=== PATIENT | female | born 1935 | race Two or more races ===

== ENCOUNTER → 2016-06-23 | Emergency (ER) | payer OTHER, BC ==
[2016-06-23 23:34] VITALS: BP 148/91; PULSE 125; TEMP 98.2; BMI 19.7
--- NOTE | 2016-06-24 01:33 | PDOC ---
History of Present Illness - General Chief Complaint: Injury Stated Complaint: FALL/INJURY Time Seen by Provider: 06/24/16 00:26 - History of Present Illness Initial Comments: 06/24/16 01:31 CHIEF COMPLAINT: R hip discomfort s/p fall HISTORY OF PRESENT ILLNESS: 81 yo F with hx of HTN presents to ED s/p fall. Patient states she was taking out the trash and when she was going back inside her house the handle of the door fell off and she fell backwards. She denies LOC or trauma to her head. She states that she has "a little soreness to her back" and R posterior hip. She states "it's not really painful, it just feels a sore when I push down on it." She denies any dizziness, nausea, vomiting, change in vision, difficulty walking. Family member at bedside states she has had no change in mental status or speech. She denies taking any anticoagulants or blood thinners. No recent travel or sick contacts. PAST MEDICAL HISTORY: HTN FAMILY HISTORY: Denies SOCIAL HISTORY: Denies tobacco, alcohol, illicit drug use. SURGICAL HISTORY: Denies ALLERGIES: pear, shrimp, walnut. REVIEW OF SYSTEMS General/Constitutional: Denies fever or chills. Denies weakness, weight change. HEENT: Denies change in vision. Denies ear pain or discharge. Denies sore throat. Cardiovascular: Denies chest pain or shortness of breath. Respiratory: Denies cough, wheezing, or hemoptysis. Gastrointestinal: Denies nausea, vomiting, diarrhea or constipation. Denies rectal bleeding. Genitourinary: Denies dysuria, frequency, or change in urination. Musculoskeletal: Mild discomfort to back of right hip/back. Skin and breasts: Denies rash or easy bruising. Neurologic: Denies headache, vertigo, loss of consciousness, or loss of sensation. PHYSICAL EXAM General Appearance: Well-appearing, appropriately dressed. No apparent distress , no intoxication. HEENT: EOMI, PERRLA, normal ENT inspection, normal voice, TMs normal, pharynx normal. No conjunctival pallor. No photophobia, scleral icterus. Neck: No tenderness to cervical spine. Supple. Trachea midline. No tenderness , rigidity, carotid bruit, stridor, lymphadenopathy, or thyromegaly. Respiratory/Chest: Lungs CTAB. Vascular Pulses: Dorsalis-Pedis (R): 2+, Dorsalis-Pedis (L): 2+ Gastrointestinal/Abdominal: Normal bowel sounds. Abdomen soft, non-distended. No tenderness or rebound tenderness. No organomegaly, pulsatile mass, guarding , hernia, hepatomegaly, splenomegaly. Musculoskeletal/Extremities: Minimal tenderness to R posterior hip on deep palpation, no swelling, erythema, or hematoma. Pelvis Stable. No tenderness to thoracic or lumbar spine. Normal inspection. FROM of all extremities, normal capillary refill. No CVA tenderness. No tenderness to extremities, pedal edema , swelling, erythema or deformity. Integumentary: Appropriate color, dry, warm. No cyanosis, erythema, jaundice or rash Neurologic: saloon keeper II-XII intact. Fully oriented, alert. Appropriate mood/affect. Motor strength 5/5. No appreciable EOM palsy, facial droop or sensory deficit. Neuro exam Past History - Past Medical History Allergies/Adverse Reactions: Allergies Allergy/AdvReac Type Severity Reaction Status Date / Time pear Allergy Verified 06/23/16 23:32 shrimp Allergy Verified 06/23/16 23:32 walnut Allergy Verified 06/23/16 23:32 Home Medications: Ambulatory Orders Metoprolol Tartrate 50 mg PO DAILY 06/23/16 Naproxen [Naprosyn] 250 mg PO BID PRN #100 oral.susp 06/24/16 Cardiac Disorders: Yes (MVP) HTN: Yes - Psycho/Social/Smoking Cessation Hx Suicidal Ideation: No Smoking History: Never smoked Hx Alcohol Use: No Drug/Substance Use Hx: No *Physical Exam - Vital Signs Last Vital Signs Temp Pulse Resp BP Pulse Ox 98.2 F 125 H 18 148/91 99 06/23/16 23:32 06/23/16 23:32 06/23/16 23:32 06/23/16 23:32 06/23/16 23:32 Medical Decision Making - Medical Decision Making 06/24/16 06:34 81 yo F with hx of HTN presents to ED s/p fall. Patient is A&Ox3, very animated while describing incident and mostly concerned about door handle falling off vs her own hip discomfort. Will discharge to home with NSAIDS for possible sequelae of MSK pain. Advised patient to take medication as prescribed and f/u with ortho if symptoms persist. Advised patient of signs and symptoms for return to ER; patient verbalized understanding and agrees to plan. *DC/Admit/Observation/Transfer Diagnosis at time of Disposition: Fall Qualifiers: Encounter type: initial encounter Qualified Code(s): W19.XXXA - Unspecified fall, initial encounter - Discharge Dispostion Admit: No - Prescriptions Prescriptions: Naproxen [Naprosyn] 250 mg PO BID PRN #100 oral.susp PRN Reason: Pain - Referrals Referrals: Bj Vazquez MD [Staff Physician] - - Patient Instructions Printed Discharge Instructions: How to Prevent Falls Additional Instructions: Please take medication as prescribed. If your symptoms persist past 2-3 days, please follow up with orthopedics. If you experience any change in mental status, slurred speech, change in vision, chest pain, shortness of breath, weakness to one side, or any new or worsening symptoms, please return to the ER.
== END | disposition home or self-care (01) ==
LOC: JER 23:28
DX: M25.551 Pain in right hip (principal); W18.39XA Other fall on same level, initial encounter; Y93.E9 Activity, other interior property and clothing maintenance; Y92.018 Other place in single-family (private) house as the place of occurrence of the external cause; I10 Essential (primary) hypertension
CPT/HCPCS: 99281-25

== ENCOUNTER 2018-12-09 21:30 | Emergency (ER) | payer OTHER, BC ==
[2018-12-09 21:54] VITALS: BP 155/71; PULSE 94; TEMP 98.6; BMI 19.5
--- NOTE | 2018-12-09 22:33 | PDOC ---
History of Present Illness - General Chief Complaint: Edema Stated Complaint: L ANKLE RED Time Seen by Provider: 12/09/18 22:32 - History of Present Illness Initial Comments: 12/09/18 23:41 83yo F hx HTN presents from home c/o R ankle redness and swelling s/p possible insect bite this PM, swelling resolved, redness improved and only minimal erythema remains, nonitchy, nonpainful, no warmth, no purulence. Pt was outside with her family and didn't feel anything sting or bite, but was walking through grass. Pt noticed a gradual swelling and erythema of the lateral R ankle. Pt did not take benadryl or any medications. Denies hx of similar sx, allergies. Denies F/C, N/V, throat swelling or itching, tongue swelling, difficulty breathing, dizziness, abdominal pain, numbness/tingling, weakness, trauma, fall. Past History - Past Medical History Allergies/Adverse Reactions: Allergies Allergy/AdvReac Type Severity Reaction Status Date / Time pear Allergy Verified 12/09/18 21:49 shrimp Allergy Verified 12/09/18 21:49 walnut Allergy Verified 12/09/18 21:49 Home Medications: Ambulatory Orders Metoprolol Tartrate 50 mg PO DAILY 06/23/16 Naproxen [Naprosyn] 250 mg PO BID PRN #100 oral.susp 06/24/16 Cardiac Disorders: Yes (MVP) HTN: Yes - Suicide/Smoking/Psychosocial Hx Smoking History: Never smoked Hx Alcohol Use: No Drug/Substance Use Hx: No Review of Systems - Review of Systems Comments:: 12/09/18 23:41 Constitutional: Negative for chills, fever, fatigue. HENT: Negative for sore throat, rhinorrhea, congestion. Eyes: Negative for visual disturbance. Respiratory: Negative for shortness of breath, cough, and wheezing. Cardiovascular: Negative for chest pain, palpitations, and leg swelling. Gastrointestinal: Negative for abdominal pain, blood in stool, constipation, diarrhea, nausea, and vomiting. Genitourinary: Negative for dysuria, flank pain, and hematuria. Musculoskeletal: Negative for myalgias, back pain, and neck pain. Skin: Positive for slight erythema and swelling of lateral R ankle. Neurological: Negative for light-headedness, dizziness, syncope, weakness, numbness and headaches. Psychiatric/Behavioral: Negative for behavioral problems and confusion. *Physical Exam - Vital Signs Last Vital Signs Temp Pulse Resp BP Pulse Ox 98.6 F 94 H 18 155/71 98 12/09/18 21:51 12/09/18 21:51 12/09/18 21:51 12/09/18 21:51 12/09/18 21:51 - Physical Exam Comments: 12/09/18 23:35 Gen: Alert, NAD, comfortable-appearing. HEENT: PERRL, EOMI, MMM, NCAT. No conjunctival pallor. Sclera are non-icteric. Oropharynx is clear. CV: Regular rate and rhythm. No murmurs, rubs, or gallops. PULM: No resp distress. CTAB, no wheezes, rales, or rhonchi. ABD: soft, NT/ND, no rebound tenderness or guarding, no CVA tenderness. MSK: No bony deformities. 2+ pulses in all extremities. NEURO: AAOx3. PERRL. No gross CN deficits. Strength and sensation grossly intact throughout. EXTREMITIES: No cyanosis. No clubbing. No edema. No calf tenderness. RLE: full ROM of ankle, 5/5 strength, sensation to light touch intact, <2 sec cap refill. PSYCH: Normal mood and thought pattern. SKIN: Warm and dry. Normal capillary refill. No jaundice. Very light erythematous 2"x2" flat area on lateral R ankle, no edema, atraumatic , no warmth, no TTP. Medical Decision Making - Medical Decision Making 12/09/18 23:41 83yo F hx HTN presents from home c/o R ankle redness and swelling s/p possible insect bite this PM, swelling resolved, redness improved and only minimal erythema remains, nonitchy, nonpainful. Hemodynamically stable, afebrile, neurovascularly intact, full ROM of ankle, no s/s concerning for anaphylaxis. Most likely contact vs allergic dermatitis. No s/s concerning for cellulitis. Pt states it's better and she does not want Benadryl or anything. Pt has benadryl at home in case she wants to take it later. Pt would like to go home now. -dc home w/PCP f/u Return precautions given. Pt understands all dc instructions and all questions were answered. *DC/Admit/Observation/Transfer Diagnosis at time of Disposition: Contact dermatitis - Discharge Dispostion Disposition: HOME Condition at time of disposition: Improved Decision to Admit order: No - Referrals - Patient Instructions Printed Discharge Instructions: DI for Contact Dermatitis Additional Instructions: You have been seen in the Emergency Department for redness and swelling of your right ankle. The swelling and redness have subsided since your arrival to the ED. Your exam shows no signs of an emergent condition such as an infection. The cause of your symptoms are unknown, but they were probably due to an insect bite or contact of some sort. The redness should continue to subside. Follow-up with your primary care doctor within 1 week. Return to the ED immediately if you the swelling or redness worsens or spreads, or if you experience chest pain, difficulty breathing, dizziness, fever, vomiting, numbness or tingling, or any other new or worsening symptom. - Post Discharge Activity
== END 2018-12-10 00:05 | disposition home or self-care (01) ==
LOC: JER 21:30
DX: L25.9 Unspecified contact dermatitis, unspecified cause (principal); I10 Essential (primary) hypertension
CPT/HCPCS: 99281-25

== ENCOUNTER 2021-08-31 07:04 | Inpatient (IN) | payer OTHER, MEDICARE, BC ==
[2021-08-31] MEDS ORDERED: ceFAZolin SODIUM 1 GM VIAL ONE ×3 (07:28→18:06)
[2021-08-31] MEDS ORDERED: VANCOMYCIN 1,000 MG VIAL (RESTRICTED TO ID ONLY) ONE (07:28)
[2021-08-31 08:09] VITALS: BMI 21.0
[2021-08-31] MEDS ORDERED: CELECOXIB 200 MG CAPSULE PO ONE ×2 (08:10→10:30)
[2021-08-31] MEDS ORDERED: MIDAZOLAM HCL 2 MG/2 ML SINGLE DOSE VIAL ONE ×2 (08:18)
[2021-08-31] MEDS ORDERED: SUCCINYLCHOLINE CHLORIDE 200 MG/10 ML SYRINGE ONE (08:20)
[2021-08-31] MEDS ORDERED: DEXAMETHASONE SOD PHOSPHATE 4 MG/1 ML VIAL ONE (08:20)
[2021-08-31] MEDS ORDERED: PROPOFOL 20 ML ONE ×2 (08:20)
[2021-08-31] MEDS ORDERED: ONDANSETRON 4 MG/2 ML VIAL ONE (08:20)
[2021-08-31] MEDS ORDERED: DEXAMETHASONE SOD PHOSPHATE 10 MG/1 ML VIAL ONE (08:23)
[2021-08-31] MEDS ORDERED: BUPIVACAINE HCL/PF 0.5% (5MG/ML) 10 ML VIAL ONE (08:24)
[2021-08-31] MEDS ORDERED: MAG HYDROX/AL HYDROX/SIMETH 30 ML UNIT-DOSE CUP PO PRN (08:52)
[2021-08-31] MEDS ORDERED: LACTATED RINGERS SOLUTION 1,000 ML IV SCH (09:00)
[2021-08-31] MEDS ORDERED: TRANEXAMIC ACID 1000 MG/10 ML VIAL IVPUSH ONE (10:30)
[2021-08-31] MEDS ORDERED: CEFAZOLIN 2 GM in DEXTROSE 5%-WATER - 50 ML IVPB ONE (10:30)
[2021-08-31] MEDS ORDERED: ACETAMINOPHEN 1000 MG/100 ML BAG IVPB ONE (11:00)
[2021-08-31] MEDS ORDERED: ONDANSETRON 4 MG/2 ML VIAL IVPUSH PRN (11:00)
[2021-08-31] MEDS ORDERED: oxyCODONE HCL 5 MG TABLET PO PRN (11:00)
[2021-08-31] MEDS: KETOROLAC TROMETHAMINE 30 MG/1 ML VIAL IVPUSH SCH ×2 (11:20→18:01)
[2021-08-31] MEDS: PANTOPRAZOLE 40 MG TABLET PO SCH (14:24)
[2021-08-31] MEDS: MULTIVITAMINS (DAILY MVI) TABLET (FP) PO SCH (14:24)
[2021-08-31] MEDS: oxyCODONE HCL 5 MG TABLET PO PRN (15:51)
[2021-08-31] MEDS: CARBIDOPA/LEVODOPA 25/100 TABLET (FP) PO SCH ×2 (15:52→21:32)
[2021-08-31] MEDS ORDERED: DEXTROSE 5%-WATER - 50 ML IVPB ONE (18:06)
[2021-08-31] MEDS: CEFAZOLIN 2 GM in DEXTROSE 5%-WATER - 50 ML IVPB SCH (18:10)
[2021-08-31] MEDS: ACETAMINOPHEN 500 MG TABLET (FP) PO SCH (18:10)
[2021-08-31] MEDS: SENNOSIDES/DOCUSATE COMBO (SENNA PLUS) TABLET (UD) PO SCH (21:32)
[2021-08-31] MEDS: ROSUVASTATIN CA 10 MG TABLET PO SCH (21:32)
[2021-08-31] MEDS: oxyCODONE HCL 10 MG SUSTAINED ACTING TABLET PO SCH (21:32)
[2021-09-01] MEDS ORDERED: ceFAZolin SODIUM 1 GM VIAL ONE (00:17)
[2021-09-01] MEDS ORDERED: DEXTROSE 5%-WATER - 50 ML IVPB ONE (00:18)
[2021-09-01] MEDS: ACETAMINOPHEN 500 MG TABLET (FP) PO SCH ×4 (00:22→17:04)
[2021-09-01] MEDS: CEFAZOLIN 2 GM in DEXTROSE 5%-WATER - 50 ML IVPB SCH (01:26)
[2021-09-01] MEDS: CARBIDOPA/LEVODOPA 25/100 TABLET (FP) PO SCH ×3 (06:11→21:25)
[2021-09-01 08:02] LABS: HEMATOCRIT 33.7 % (32.4-45.2); HEMOGLOBIN 11.3 G/dL (10.7-15.3); MCH 31.4 pg (25.7-33.7); MCHC 33.6 g/dl (32.0-36.0); MEAN CELL VOLUME 93.7 fl (80-96); MEAN PLT VOLUME 8.8 fl (7.5-11.1); PLATELET COUNT 243.5 10^3/uL (134-434); RDW 14.9 % (11.6-15.6); WHITE BLOOD COUNT 16.7 10^3/uL (4.0-10.8)
[2021-09-01] MEDS: SENNOSIDES/DOCUSATE COMBO (SENNA PLUS) TABLET (UD) PO SCH ×2 (09:10→21:25)
[2021-09-01] MEDS: oxyCODONE HCL 5 MG TABLET PO PRN ×2 (09:10→17:04)
[2021-09-01] MEDS: oxyCODONE HCL 10 MG SUSTAINED ACTING TABLET PO SCH ×2 (09:11→21:26)
[2021-09-01] MEDS: ASPIRIN 325 MG TABLET PO SCH (09:13)
[2021-09-01] MEDS: MULTIVITAMINS (DAILY MVI) TABLET (FP) PO SCH (09:13)
[2021-09-01] MEDS: METOPROLOL TARTRATE 50 MG TABLET (FP) PO SCH (09:13)
[2021-09-01] MEDS: PANTOPRAZOLE 40 MG TABLET PO SCH (09:21)
[2021-09-01] MEDS: ROSUVASTATIN CA 10 MG TABLET PO SCH (21:26)
[2021-09-01] MEDS ORDERED: DONEPEZIL HCL 5 MG TABLET (FP) PO SCH (22:00)
[2021-09-02] MEDS: ACETAMINOPHEN 500 MG TABLET (FP) PO SCH ×3 (00:28→13:58)
[2021-09-02] MEDS: CARBIDOPA/LEVODOPA 25/100 TABLET (FP) PO SCH (06:36)
[2021-09-02 08:12] LABS: HEMOGLOBIN 10.3 G/dL (10.7-15.3); MCHC 33.3 g/dl (32.0-36.0); MEAN PLT VOLUME 8.8 fl (7.5-11.1); PLATELET COUNT 175.4 10^3/uL (134-434); RBC 3.33 10^6/uL (3.60-5.2); RDW 14.9 % (11.6-15.6); WHITE BLOOD COUNT 12.7 10^3/uL (4.0-10.8)
[2021-09-02] MEDS: ASPIRIN 325 MG TABLET PO SCH (08:18)
[2021-09-02] MEDS: oxyCODONE HCL 5 MG TABLET PO PRN (08:19)
[2021-09-02] MEDS ORDERED: CARBIDOPA/LEVODOPA 25/100 TABLET (FP) PO SCH (08:30)
[2021-09-02] MEDS: oxyCODONE HCL 10 MG SUSTAINED ACTING TABLET PO SCH (08:59)
[2021-09-02] MEDS: SENNOSIDES/DOCUSATE COMBO (SENNA PLUS) TABLET (UD) PO SCH (08:59)
[2021-09-02] MEDS: MULTIVITAMINS (DAILY MVI) TABLET (FP) PO SCH (08:59)
[2021-09-02] MEDS: PANTOPRAZOLE 40 MG TABLET PO SCH (08:59)
[2021-09-02] MEDS: METOPROLOL TARTRATE 50 MG TABLET (FP) PO SCH (08:59)
[2021-09-02 10:41] VITALS: BP 110/50; PULSE 81; TEMP 97.9
== END 2021-09-02 14:02 | disposition home health service (06) | DRG 470 ==
LOC: FM/S 07:04
PROVIDERS: ADMIT Orthopaedic Surgery; ATTEND Orthopaedic Surgery
PROC: 0SR903A Replacement of Right Hip Joint with Ceramic Synthetic Substitute, Uncemented, Open Approach (ICD-10-PCS; principal; 2021-09-01)
PROC: 8E0W0CZ Robotic Assisted Procedure of Trunk Region, Open Approach (ICD-10-PCS; 2021-09-01)
DX: M16.11 Unilateral primary osteoarthritis, right hip (principal); I10 Essential (primary) hypertension; G20 Parkinson's disease; D72.829 Elevated white blood cell count, unspecified
CPT/HCPCS: 36415; 73502-TC-RT-FY; 82962; 85027; 88305-TC; 88311-TC; 94760; 97010-GP; 97116-GP; 97161-GP; J1100